=== PATIENT | male | born 1995 | race Caucasian/White ===

== ENCOUNTER → 2023-05-14 11:34 | Outpatient (CLI) | payer OTHER, SELFPAY ==
--- NOTE | 2023-05-14 11:37 | DI.MRI.S_ITS ---
PROCEDURE: MR ANKLE RT WO CON INDICATIONS: Sprain of unspecified ligament of right ankle TECHNIQUE: Noncontrast sagittal T1 spin echo and T2 fast spin echo with fat saturation, axial proton density fast spin echo and T2 fast spin echo with fat saturation, coronal T1 spin echo and T2 fast spin echo with fat saturation through the ankle/hindfoot. COMPARISON: None. FINDINGS: Image quality: Excellent. Bones and joints: No acute trabecular bone injury or fracture. No hindfoot coalitions. No osteochondral injuries of the talar dome. Medial structures: The deltoid ligament and the spring ligament complex are intact. The posterior tibialis, flexor digitorum longus, and flexor hallucis longus tendons are intact. The posterior tibial neurovascular bundle appears normal within the tarsal tunnel, without extrinsic mass effect. Lateral structures: Mild subcutaneous scarring is seen at the anterolateral aspect of the ankle. There is complete tearing of the anterior talofibular ligament and likely the calcaneofibular ligament. Remote prior low-grade sprain of the posterior talofibular ligament. The anterior and posterior tibiofibular ligaments are intact. The peroneus longus and brevis tendons demonstrate mild tendinosis. The sinus tarsi demonstrates normal fatty signal. Anterior structures: The tibialis anterior, extensor hallucis longus, and extensor digitorum longus tendons appear intact. The dorsal talonavicular ligament appears intact. Posterior and plantar structures: Mild Achilles tendinosis. The proximal plantar fascia is intact. No abductor digiti minimi muscle atrophy to suggest Lopez neuropathy. IMPRESSION: 1. 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 Remote prior grade 1 sprain of the the posterior talofibular ligament. Mild scarring at the anterolateral aspect of the ankle may indicate anterolateral impingement. 2. Mild peroneus brevis and longus tendinosis. 3. Mild Achilles tendinosis. Approved by: Dave Sears M.D. on 05/16/2023 at 13:58
== END ==
LOC: MRI 11:35
PROVIDERS: Referring Provider Orthopaedic Surgery; Visit Provider Orthopaedic Surgery
DX: S93.491A Sprain of other ligament of right ankle, initial encounter (principal); S93.411A Sprain of calcaneofibular ligament of right ankle, initial encounter; X58.XXXA Exposure to other specified factors, initial encounter
CPT/HCPCS: 73721

== ENCOUNTER 2024-09-05 12:01 | Emergency (ER) | payer OTHER, SELFPAY ==
[2024-09-05 12:26] VITALS: BP 136/77; PULSE 108; RESP 18; TEMP 36.9; O2SAT 100; BMI 27.5
--- NOTE | 2024-09-05 12:42 | ED.URI ---
HPI - URI/Sore Throat <Pam Wells PA-C - Last Filed: 09/05/24 15:31> General Chief Complaint: Upper Respiratory Symptoms Stated Complaint: has strep sent by PCP high white blood cells Time Seen by Provider: 09/05/24 12:41 Source: patient Mode of arrival: Ambulatory History of Present Illness HPI Narrative: Mr. Regalado is a very pleasant 29-year-old male, active [place], with no reported past medical history who presents to the emergency department after being sent pt PCP for sore throat x3 days with the elevated white blood cell count. Patient developed a sore throat, has had difficulty swallowing and pain with neck range of motion, he saw his primary care doctor in office and had blood work and a strep test performed, the results came back after hours, the strep test was positive and his white blood cell count was elevated so he was sent to the ER. He has not been taking any medications, no prescription for antibiotics yet. Reports pain with swallowing, worse on the right side than the left. No difficulty tolerating secretions or shortness of breath. He has been having fevers at home, took ibuprofen earlier this morning. No chest pain, rashes, shortness of breath, nausea, vomiting, diarrhea, constipation. Related Data Previous Rx's ?Medication ?Instructions ?Recorded amoxicillin 875 mg-potassium 1 tab PO Q12H 10 days #20 tabs 09/05/24 clavulanate 125 mg tablet Allergies Allergy/AdvReac Type Severity Reaction Status Date / Time No Known Drug Allergies Allergy Verified 09/05/24 12:26 Review of Systems <Pam Wells PA-C - Last Filed: 09/05/24 15:31> Review of Systems ROS Unobtainable: All systems reviewed & are unremarkable except as noted in HPI and below Patient History <Pam Wells PA-C - Last Filed: 09/05/24 15:31> Social History Smoking Status: Never smoker Smoking Status: Never smoker Exam <HIPOLITO Cortez Last Filed: 09/05/24 15:31> Narrative Exam Narrative: GENERAL: 29 year old patient appears stated age. Well-developed patient, in no acute distress. HEAD: Atraumatic. Normocephalic. EYES: PERRL. Extraocular motions intact. No scleral icterus. No injection or drainage. ENT: Normal TMs bilaterally. Nose without bleeding, purulent drainage. Posterior oropharynx brightly erythematous with bilateral tonsillar hypertrophy, right greater than the left, uvula is midline and airway is patent. Submandibular region and floor of mouth soft. Tolerating secretions without difficulty. NECK: Trachea midline. Cervical ROM intact. Patient does have pain with cervical range of motion. Palpable bilateral cervical lymphadenopathy present. CARDIOVASCULAR: Increased rate rate and rhythm. RESPIRATORY: ?Nonlabored respirations. ?Speaking in clear, full sentences. ?Clear to auscultation. Breath sounds equal bilaterally. No wheezes, rales, or rhonchi. ? EXTREMITIES: No edema or joint tenderness. BACK: Nontender without deformity or crepitance. No flank tenderness. NEURO: AOx3. ?Clear speech. ?Moves all 4 extremities appropriately. SKIN: No rash or erythema of visible areas Initial Vital Signs Initial Vital Signs: Vital Signs Temperature 98.5 F 09/05/24 12:26 Pulse Rate 108 H 09/05/24 12:26 Respiratory Rate 18 09/05/24 12:26 Blood Pressure 136/77 09/05/24 12:26 Pulse Oximetry 100 09/05/24 12:26 Oxygen Delivery Method Room Air 09/05/24 12:26 <Rosario Kate DO - Last Filed: 09/05/24 18:28> Initial Vital Signs Initial Vital Signs: Vital Signs Temperature 98.5 F 09/05/24 12:26 Pulse Rate 108 H 09/05/24 12:26 Respiratory Rate 18 09/05/24 12:26 Blood Pressure 136/77 09/05/24 12:26 Pulse Oximetry 100 09/05/24 12:26 Oxygen Delivery Method Room Air 09/05/24 12:26 Course <Pam Wells PA-C - Last Filed: 09/05/24 15:31> Orders Ordered: ED Orders 09/05/24 12:49 CT soft tissue neck w con Stat 09/05/24 13:18 CBC Auto Diff [Complete Blood Count AUTO DIFF] Stat CMP [Comprehensive Metabolic Panel] Stat Lactate (Lactic Acid) Stat 09/05/24 13:34 Blood Culture Stat Discontinued Medications Acetaminophen (Acetaminophen 325 Mg Tablet) 975 mg PO NOW ONE Stop: 09/05/24 15:05 Last Admin: 09/05/24 15:15 Dose: 975 mg Documented By: FABIAN Dexamethasone (Dexamethasone 10 Mg/Ml Vial) 10 mg IV NOW ONE Stop: 09/05/24 12:49 Last Admin: 09/05/24 13:50 Dose: 10 mg Documented By: INES Sodium Chloride (Normal Saline 0.9%) 1,000 mls @ 1,000 mls/hr IV BOLUS ONE Stop: 09/05/24 13:47 Last Infusion: 09/05/24 15:11 Dose: Infused Documented By: Admin: 09/05/24 13:49 Dose: 1,000 mls/hr Documented By: INES Ampicillin Sodium/Sulbactam (Sodium 3 gm/ Sodium Chloride) 100 mls @ 200 mls/hr IV NOW ONE Stop: 09/05/24 12:51 Last Infusion: 09/05/24 14:37 Dose: Infused Documented By: Admin: 09/05/24 14:01 Dose: 200 mls/hr Documented By: INES Sodium Chloride (Normal Saline 0.9%) 1,000 mls @ 1,000 mls/hr IV BOLUS ONE Stop: 09/05/24 13:52 Last Admin: 09/05/24 14:37 Dose: 1,000 mls/hr Documented By: INES Ketorolac Tromethamine (Ketorolac 30 Mg/Ml Vial) 15 mg IV NOW ONE Stop: 09/05/24 12:49 Last Admin: 09/05/24 13:50 Dose: 15 mg Documented By: INES Vital Signs Vital signs: Vital Signs - 8 hr 09/05/24 12:26 09/05/24 13:25 09/05/24 13:42 Temperature 98.5 F 100.8 F H 99.5 F Pulse Rate 108 H 98 H Respiratory Rate 18 18 Blood Pressure 136/77 135/95 H Pulse Oximetry 100 100 Oxygen Delivery Method Room Air Room Air 09/05/24 14:38 09/05/24 15:13 Temperature 99.7 F H 99.3 F Pulse Rate 99 H 98 H Respiratory Rate 18 18 Blood Pressure 134/86 121/75 Pulse Oximetry 99 100 Oxygen Delivery Method Room Air Room Air <Rosario Kate, DO - Last Filed: 09/05/24 18:28> Orders Ordered: ED Orders 09/05/24 12:49 CT soft tissue neck w con Stat 09/05/24 13:18 CBC Auto Diff [Complete Blood Count AUTO DIFF] Stat CMP [Comprehensive Metabolic Panel] Stat Lactate (Lactic Acid) Stat 09/05/24 13:34 Blood Culture Stat Discontinued Medications Acetaminophen (Acetaminophen 325 Mg Tablet) 975 mg PO NOW ONE Stop: 09/05/24 15:05 Last Admin: 09/05/24 15:15 Dose: 975 mg Documented By: FABIAN Dexamethasone (Dexamethasone 10 Mg/Ml Vial) 10 mg IV NOW ONE Stop: 09/05/24 12:49 Last Admin: 09/05/24 13:50 Dose: 10 mg Documented By: INES Sodium Chloride (Normal Saline 0.9%) 1,000 mls @ 1,000 mls/hr IV BOLUS ONE Stop: 09/05/24 13:47 Last Infusion: 09/05/24 15:11 Dose: Infused Documented By: Admin: 09/05/24 13:49 Dose: 1,000 mls/hr Documented By: INES Ampicillin Sodium/Sulbactam (Sodium 3 gm/ Sodium Chloride) 100 mls @ 200 mls/hr IV NOW ONE Stop: 09/05/24 12:51 Last Infusion: 09/05/24 14:37 Dose: Infused Documented By: Admin: 09/05/24 14:01 Dose: 200 mls/hr Documented By: INES Sodium Chloride (Normal Saline 0.9%) 1,000 mls @ 1,000 mls/hr IV BOLUS ONE Stop: 09/05/24 13:52 Last Admin: 09/05/24 14:37 Dose: 1,000 mls/hr Documented By: INES Ketorolac Tromethamine (Ketorolac 30 Mg/Ml Vial) 15 mg IV NOW ONE Stop: 09/05/24 12:49 Last Admin: 09/05/24 13:50 Dose: 15 mg Documented By: INES Vital Signs Vital signs: Vital Signs - 8 hr 09/05/24 12:26 09/05/24 13:25 09/05/24 13:42 Temperature 98.5 F 100.8 F H 99.5 F Pulse Rate 108 H 98 H Respiratory Rate 18 18 Blood Pressure 136/77 135/95 H Pulse Oximetry 100 100 Oxygen Delivery Method Room Air Room Air 09/05/24 14:38 09/05/24 15:13 Temperature 99.7 F H 99.3 F Pulse Rate 99 H 98 H Respiratory Rate 18 18 Blood Pressure 134/86 121/75 Pulse Oximetry 99 100 Oxygen Delivery Method Room Air Room Air MDM - URI/Sore Throat <Pam Wells PA-C - Last Filed: 09/05/24 15:31> Lab Data 09/05/24 13:18 09/05/24 13:18 Labs: Lab Results 09/05/24 Range/Units 13:18 WBC 13.4 H (4.5-11.0) X10^3/uL RBC 5.10 (4.5-5.9) X10^6/uL Hgb 15.5 (13.5-17.5) g/dL Hct 44.8 (41-53) % MCV 87.9 (80-100) fL MCH 30.5 (26-34) PG MCHC 34.7 (30-36) % RDW 13.3 (11.6-14.8) % Plt Count 137 L (150-400) X10^3/uL Neut % (Auto) 83.1 H (50-75) % Lymph % (Auto) 8.1 L (25-40) % [place] % (Auto) 8.3 (3-14) % Eos % (Auto) 0.3 L (2-4) % Baso % (Auto) 0.2 (0-2) % Neut # (Auto) 92196 H (5846-7933) /uL Lymph # (Auto) 1100 (5149-9690) /uL [place] # (Auto) 1100 H (0-900) /uL Eos # (Auto) 0 (0-450) /uL Baso # (Auto) 0 (0-100) /uL Sodium 137 (137-145) mmol/L Potassium 4.2 (3.4-5.1) mmol/L Chloride 100 (98-107) mmol/L Carbon Dioxide 28 (22-32) mmol/L BUN 17 (9-20) mg/dL Creatinine 1.12 (0.66-1.25) mg/dL Estimated GFR > 60 (>60) mL/min BUN/Creatinine Ratio 15.2 (6-22) Glucose 96 (70-99) mg/dL Lactate 0.7 (0.7-2.1) mmol/L Calcium 9.0 (8.4-10.2) mg/dL Total Bilirubin 1.9 H (0.2-1.3) mg/dL AST 26 (17-59) IU/L ALT 19 (<50) IU/L Alkaline Phosphatase 79 (38-126) U/L Total Protein 8.3 H (6.3-8.2) g/dL Albumin 4.5 (3.5-5.0) g/dL Globulin 3.8 (1.7-4.1) g/dL Albumin/Globulin Ratio 1.2 (1.0-2.8) Imaging Data CT Soft Tissue Neck: Radiologist's Impression: PROCEDURE: CT SOFT TISSUE NECK W CON INDICATIONS: strep +; R sided swelling > left TECHNIQUE: After the administration of intravenous contrast, 3.0 mm axial sections acquired from the sella to the aortic arch. Additional oblique axial 3.0 mm sections acquired through the pharynx. 3 mm thick coronal and sagittal reformats were generated. For radiation dose reduction, the following was used: automated exposure control. COMPARISON: None. FINDINGS: Image quality: Excellent. Lymph nodes: Enlarged cervical lymph nodes can be seen, with the largest on the left seen at level 2A measuring 2.5 by 1.5 cm. The largest on the right is also seen at level 2A measuring 1.9 by 1.6 cm. Vessels: Visualized vasculature appears patent. Neck spaces: Generalized soft tissue swelling can be seen of the mucosa of the oropharynx, with hypertrophy of the tonsils. The lymph tissue at the tongue base is also hypertrophied. No findings of abscess can be seen. Just anterior to the hyoid bone, there is a cystic focus seen without rim enhancement measuring 15 x 15 mm in greatest axial dimension, with a craniocaudal extent of 8 mm. Glands: The parotid and submandibular glands appear normal. Thyroid gland the demonstrates no significant abnormality. Miscellaneous: Visualized brain and orbits appear normal. Lung apices appear clear. Superficial soft tissues appear normal. Bones: No suspicious bony lesions. Visualized sinuses and mastoids appear unremarkable. IMPRESSION: Generalized soft tissue swelling seen of the mucosa of the oropharynx, yet without an abscess seen. The appearance is consistent with the given clinical history of strep infection. Enlarged cervical lymph nodes can be seen on both sides, which are regarded to be reactive. The incidental note is made of a 15 mm cystic focus just anterior to the hyoid bone, which represents a thyroglossal duct cyst until proven otherwise. No findings of infection of this cyst can be seen. Dictated by: Murali Atkins M.D. on 09/05/2024 at 13:11 Approved by: Murali Atkins M.D. on 09/05/2024 at 13:13 [facility] Narrative Medical decision making narrative: 29-year-old male, active [place], with no reported past medical history who presents to the emergency department after being sent pt PCP for sore throat x3 days with the elevated white blood cell count. Differential diagnosis includes but is not limited to strep pharyngitis, peritonsillar abscess, retropharyngeal abscess, cervical lymphadenopathy, etc. On exam patient is in no acute distress, nontoxic appearing, vital signs do reveal elevated temperature and heart rate. Posterior oropharynx brightly erythematous with bilateral tonsillar hypertrophy, right greater than left. He did test positive for strep pharyngitis outpatient. We will obtain labs including lactate, blood cultures, treat with Unasyn, IV fluids, Decadron, Toradol and obtain CT neck to rule out deep space abscess. Labs reveal elevated WBC count 13.4, normal hemoglobin 15.5 hematocrit 44.8. Platelets 137. BUN 17 creatinine 1.12. Negative lactate 0.7. CT reveals generalized soft tissue swelling seen of the mucosa of the oropharynx and without an abscess seen. Parents consistent with globin clinical history of strep infection. He does have enlarged cervical lymph nodes can be seen on both sides. Incidental note of a 15 mm cystic focus just anterior to the hyoid bone, which represents a thyroglossal duct cyst until proven otherwise. Printed and discussed all results with the patient. He is feeling much improved after ED treatment. No issues breathing or tolerating his secretions. We will prescribe Augmentin b.i.d. x 10 days, recommended increase hydration, ibuprofen and acetaminophen, follow up with PCP. Discussed strict ED return precautions. Patient verbalized understanding of all information and is agreeable with the plan. He is stable for discharge home. <Rosario Kate, - Last Filed: 09/05/24 18:28> Lab Data Labs: Lab Results 09/05/24 Range/Units 13:18 WBC 13.4 H (4.5-11.0) X10^3/uL RBC 5.10 (4.5-5.9) X10^6/uL Hgb 15.5 (13.5-17.5) g/dL Hct 44.8 (41-53) % MCV 87.9 (80-100) fL MCH 30.5 (26-34) PG MCHC 34.7 (30-36) % RDW 13.3 (11.6-14.8) % Plt Count 137 L (150-400) X10^3/uL Neut % (Auto) 83.1 H (50-75) % Lymph % (Auto) 8.1 L (25-40) % [place] % (Auto) 8.3 (3-14) % Eos % (Auto) 0.3 L (2-4) % Baso % (Auto) 0.2 (0-2) % Neut # (Auto) 61427 H (1898-1619) /uL Lymph # (Auto) 1100 (6148-8168) /uL [place] # (Auto) 1100 H (0-900) /uL Eos # (Auto) 0 (0-450) /uL Baso # (Auto) 0 (0-100) /uL Sodium 137 (137-145) mmol/L Potassium 4.2 (3.4-5.1) mmol/L Chloride 100 (98-107) mmol/L Carbon Dioxide 28 (22-32) mmol/L BUN 17 (9-20) mg/dL Creatinine 1.12 (0.66-1.25) mg/dL Estimated GFR > 60 (>60) mL/min BUN/Creatinine Ratio 15.2 (6-22) Glucose 96 (70-99) mg/dL Lactate 0.7 (0.7-2.1) mmol/L Calcium 9.0 (8.4-10.2) mg/dL Total Bilirubin 1.9 H (0.2-1.3) mg/dL AST 26 (17-59) IU/L ALT 19 (<50) IU/L Alkaline Phosphatase 79 (38-126) U/L Total Protein 8.3 H (6.3-8.2) g/dL Albumin 4.5 (3.5-5.0) g/dL Globulin 3.8 (1.7-4.1) g/dL Albumin/Globulin Ratio 1.2 (1.0-2.8) Discharge Plan Departure Patient Disposition: Home Clinical Impression: Acute streptococcal pharyngitis Instructions: DI for Strep Throat Activity Restrictions/Additional Instructions: Dear Mr. Regalado, Thank you for coming to the emergency department. Today you were evaluated for a throat infection, your CT scan revealed no signs of abscess at this time. You did have an incidental finding of a likely thyroglossal duct cyst which you can follow up with the primary care doctor about. Please complete the full 10 day course of antibiotics. I would also like you to take ibuprofen and Tylenol to help control pain and fevers. Increase your hydration, and also increase rest. Return to the emergency department if you develop any new or worsening symptoms, difficulty swallowing or any other concerns. Please take Ibuprofen (Motrin/Advil) or Acetaminophen (Tylenol) for pain. These are available over the counter. You may take Ibuprofen 600 mg every 8 hours with food for pain. You may also take Acetaminophen 650 mg every 4-6 hours for pain. Do not exceed 3000 mg of Tylenol a day as this can cause liver damage. Do not drink alcohol with either of these medications. Please follow up with your primary care doctor within the next 2-3 days for ER follow-up. (If you do not have a PCP you can call [phone]. ?to schedule an appointment with an [facility] Primary Care Provider) IF YOU DEVELOP ANY NEW OR WORSENING SYMPTOMS, RETURN TO THE ER! Please read the attached instructions, they highlight more specific treatments and interventions for you at home. Thank you for letting me participate in your care, Pam Wells PA-C Prescriptions: New amoxicillin-pot clavulanate 875-125 mg tablet 1 tab PO Q12H 10 Days Qty: 20 0RF Stand Alone Forms: Patient Portal/API, Work Release Note ED Sign-out <Rosario Kate DO - Last Filed: 09/05/24 18:28> Cosign ED Attending Kecia Attestation: I was immediately available in the department for consultation.
--- NOTE | 2024-09-05 12:49 | DI.CT.S_ITS ---
PROCEDURE: CT SOFT TISSUE NECK W CON INDICATIONS: strep +; R sided swelling > left TECHNIQUE: After the administration of intravenous contrast, 3.0 mm axial sections acquired from the sella to the aortic arch. Additional oblique axial 3.0 mm sections acquired through the pharynx. 3 mm thick coronal and sagittal reformats were generated. For radiation dose reduction, the following was used: automated exposure control. COMPARISON: None. FINDINGS: Image quality: Excellent. Lymph nodes: Enlarged cervical lymph nodes can be seen, with the largest on the left seen at level 2A measuring 2.5 by 1.5 cm. The largest on the right is also seen at level 2A measuring 1.9 by 1.6 cm. Vessels: Visualized vasculature appears patent. Neck spaces: Generalized soft tissue swelling can be seen of the mucosa of the oropharynx, with hypertrophy of the tonsils. The lymph tissue at the tongue base is also hypertrophied. No findings of abscess can be seen. Just anterior to the hyoid bone, there is a cystic focus seen without rim enhancement measuring 15 x 15 mm in greatest axial dimension, with a craniocaudal extent of 8 mm. Glands: The parotid and submandibular glands appear normal. Thyroid gland the demonstrates no significant abnormality. Miscellaneous: Visualized brain and orbits appear normal. Lung apices appear clear. Superficial soft tissues appear normal. Bones: No suspicious bony lesions. Visualized sinuses and mastoids appear unremarkable. IMPRESSION: Generalized soft tissue swelling seen of the mucosa of the oropharynx, yet without an abscess seen. The appearance is consistent with the given clinical history of strep infection. Enlarged cervical lymph nodes can be seen on both sides, which are regarded to be reactive. The incidental note is made of a 15 mm cystic focus just anterior to the hyoid bone, which represents a thyroglossal duct cyst until proven otherwise. No findings of infection of this cyst can be seen. Dictated by: Murali Atkins M.D. on 09/05/2024 at 13:11 Approved by: Murali Atkins M.D. on 09/05/2024 at 13:13
[2024-09-05 13:25] VITALS: BP 135/95; PULSE 98; RESP 18; TEMP 38.2; O2SAT 100
[2024-09-05 13:37] LABS: Add Manual Diff / Slide Review NO; Basophils Absolute Auto 0 /uL (0-100); Basophils Percent Auto 0.2 % (0-2); Eosinophils Absolute Auto 0 /uL (0-450); Eosinophils Percent Auto 0.3 % (2-4); Hematocrit 44.8 % (41-53); Hemoglobin 15.5 g/dL (13.5-17.5); Lymphocytes Absolute Auto 1100 /uL (1100-4500); Lymphocytes Percent Auto 8.1 % (25-40); Mean Corpuscular HGB Conc 34.7 % (30-36); Mean Corpuscular Hemoglobin 30.5 PG (26-34); Mean Corpuscular Volume 87.9 fL (80-100); Monocytes Absolute Auto 1100 /uL (0-900); Monocytes Percent Auto 8.3 % (3-14); Neutrophils Absolute Auto 11100 /uL (1500-7000); Neutrophils Percent Auto 83.1 % (50-75); Platelet Count 137 X10^3/uL (150-400); Red Cell Distribution Width 13.3 % (11.6-14.8); White Blood Cell Count 13.4 X10^3/uL (4.5-11.0)
[2024-09-05 13:42] VITALS: TEMP 37.5
[2024-09-05] MEDS: SODIUM CHLORIDE 0.9% 1,000 ML 1000 ML IV ×2 (13:49→14:37)
[2024-09-05 13:50] LABS: Alanine Aminotransferase 19 IU/L (<50); Albumin 4.5 g/dL (3.5-5.0); Albumin Globulin Ratio 1.2 (1.0-2.8); Alkaline Phosphatase 79 U/L (38-126); Aspartate Aminotransferase 26 IU/L (17-59); BUN Creatinine Ratio 15.2 (6-22); Bilirubin Total 1.9 mg/dL (0.2-1.3); Blood Urea Nitrogen 17 mg/dL (9-20); Carbon Dioxide 28 mmol/L (22-32); Chloride 100 mmol/L (98-107); Estimated Glomerular Filt Rate > 60 mL/min (>60); Globulin 3.8 g/dL (1.7-4.1); Glucose 96 mg/dL (70-99); HEMOLYSIS < 15 (0-50); Lactate (Lactic Acid) 0.7 mmol/L (0.7-2.1); Potassium 4.2 mmol/L (3.4-5.1); Sodium 137 mmol/L (137-145); Total Protein 8.3 g/dL (6.3-8.2)
[2024-09-05] MEDS: DEXAMETHASONE 10 MG/ML VIAL IV (13:50)
[2024-09-05] MEDS: KETOROLAC 30 MG/ML VIAL 15 MG IV (13:50)
[2024-09-05] MEDS: AMPICILLIN/SULBACTAM 3 GM 3 GM in SODIUM CHLORIDE 0.9% 100 ML IV (14:01)
[2024-09-05 14:38] VITALS: BP 134/86; PULSE 99; RESP 18; TEMP 37.6; O2SAT 99
[2024-09-05 15:13] VITALS: BP 121/75; PULSE 98; RESP 18; TEMP 37.4; O2SAT 100
[2024-09-05] MEDS: ACETAMINOPHEN 325 MG TABLET 975 MG PO (15:15)
== END 2024-09-05 15:25 | disposition home or self-care (01) ==
PROVIDERS: Emergency Provider Physician Assistant
DX: J02.0 Streptococcal pharyngitis (principal)
CPT/HCPCS: 36415; 70491; 80053; 83605; 85025; 87040; 96365; 96375; 99284; J0295; J1100; J1885; Q9967

== ENCOUNTER 2024-12-19 09:01 | Emergency (ER) | payer OTHER, SELFPAY ==
[2024-12-19 09:05] VITALS: BP 126/78; PULSE 81; RESP 16; TEMP 37; O2SAT 98; BMI 26.2
--- NOTE | 2024-12-19 09:49 | DI.CT.S_ITS ---
PROCEDURE: CT ABDOMEN PELVIS W CON INDICATIONS: Right lower quadrant pain TECHNIQUE: After the administration of intravenous contrast, axial sections acquired from the lung bases to the pubic symphysis. Coronal and sagittal reformats were performed. For radiation dose reduction, the following was used: automated exposure control, adjustment of mA and/or kV according to patient size. COMPARISON: None. FINDINGS: Image quality: Diagnostic. Lower Chest: No significant findings. ABDOMEN: Liver: No solid mass. Gallbladder: No radiopaque gallstones or wall thickening. Biliary ducts: No biliary dilation. Pancreas: No ductal dilation. Spleen: Size is within normal limits. Adrenal Glands: No adrenal nodules. Kidneys and Ureters: No hydronephrosis. No solid mass. No complex renal cystic lesion which requires follow up. Stomach and Bowel: Normal colonic caliber, without significant wall thickening. Mobile cecum with right colon in the left abdomen and cecum position in the left paramedian pelvis with normal appendix identified in the mid pelvis. Moderate amount of stool scattered throughout the colon. Peritoneum: No abnormal intraperitoneal fluid. No free air. Ventral Wall: No significant ventral hernia. Abdominal Nodes: No retroperitoneal or mesenteric adenopathy by size criteria. Vessels: Aorta and inferior vena cava are normal in size. PELVIS: Pelvic Organs: Unremarkable. Bladder: No bladder wall thickening, accounting for underdistention. Pelvic Nodes: No enlarged lymph nodes. Miscellaneous: No inguinal hernias are seen. Bones: No aggressive osseous abnormality. IMPRESSION: No acute disease process. Moderate colonic fecal loading. Normal appendix. No renal stone or hydronephrosis. Dictated by: Anjana Encinas MD, PhD on 12/19/2024 at 10:05 Approved by: Anjana Encinas MD, PhD on 12/19/2024 at 10:08
--- NOTE | 2024-12-19 09:54 | ED.ABDPAIN ---
HPI - Abdominal Pain General Chief Complaint: Abdominal Pain Stated Complaint: Intense Stomach pain at night time, bloody stool Time Seen by Provider: 12/19/24 09:30 History of Present Illness HPI narrative: Patient complains of right lower quadrant pain for the past few days. No nausea or vomiting. Patient did have bright red blood covered stools a few times though. Denies any abdominal surgical history. No history of ulcerative colitis or Crohn's disease. No urinary complaints. Patient does not want anything for discomfort at this time. Related Data Allergies Allergy/AdvReac Type Severity Reaction Status Date / Time No Known Drug Allergies Allergy Verified 09/05/24 12:26 Review of Systems Review of Systems Narrative: GENERAL: Negative chills, fatigue, malaise, fever, sweats. HEENT: Negative sinus pain, ear pain, sore throat RESPIRATORY: Negative dyspnea, cough CARDIOVASCULAR: Negative chest pain, palpitations GASTROINTESTINAL: Negative vomiting, nausea, positive blood in the stool, positive abdominal pain : Negative dysuria, frequency, hematuria MUSCULOSKELETAL: Negative muscle or bony pain SKIN: Negative rash, skin lesions NEUROLOGIC: Negative weakness, numbness ROS Unobtainable: All systems reviewed & are unremarkable except as noted in HPI and below Exam Narrative Exam Narrative: GENERAL: in no distress, not toxic not dyspneic HEAD: Normocephalic. EYES: Pupils equal round ENT: Mucous membranes moist. NECK: Trachea midline. CARDIOVASCULAR: Regular rate and rhythm RESPIRATORY: Clear to auscultation. Breath sounds equal bilaterally. No wheezes, rales, or rhonchi. GASTROINTESTINAL: Abdomen soft, non-tender, reproducible diffuse right lower quadrant tenderness. No McBurney point tenderness. No peritoneal signs bowel sounds are present. No guarding rebound. No CVA tenderness EXTREMITIES: No gross deformities. BACK: No flank tenderness. NEURO: AOx4. Clear speech SKIN: Warm and dry PSYCH: Not anxious, is cooperative Initial Vital Signs Initial Vital Signs: Vital Signs Temperature 98.6 F 12/19/24 09:05 Pulse Rate 81 12/19/24 09:05 Respiratory Rate 16 12/19/24 09:05 Blood Pressure 126/78 12/19/24 09:05 Pulse Oximetry 98 12/19/24 09:05 Oxygen Delivery Method Room Air 12/19/24 09:05 Course Orders Ordered: ED Orders 12/19/24 09:49 CT abdomen pelvis w con Stat 12/19/24 09:50 Complete Blood Count AUTO DIFF Stat Comprehensive Metabolic Panel Stat Lipase Stat Type and Screen Stat Discontinued Medications Sodium Chloride (Normal Saline 0.9%) 1,000 mls @ 1,000 mls/hr IV BOLUS ONE Stop: 12/19/24 10:34 Last Infusion: 12/19/24 11:20 Dose: Infused Documented By: Admin: 12/19/24 10:19 Dose: 1,000 mls/hr Documented By: INES Vital Signs Vital signs: Vital Signs - 8 hr 12/19/24 09:05 12/19/24 10:23 12/19/24 10:24 Temperature 98.6 F Pulse Rate 81 82 79 Respiratory Rate 16 Blood Pressure 126/78 Pulse Oximetry 98 95 100 Oxygen Delivery Method Room Air 12/19/24 10:24 12/19/24 10:30 12/19/24 10:30 Temperature Pulse Rate 75 Respiratory Rate Blood Pressure 121/76 115/74 Pulse Oximetry 100 Oxygen Delivery Method 12/19/24 11:00 12/19/24 11:00 Temperature Pulse Rate 77 Respiratory Rate Blood Pressure 111/72 Pulse Oximetry 100 Oxygen Delivery Method MDM - Abdominal Pain Lab Data 12/19/24 09:50 12/19/24 09:50 Labs: Lab Results 12/19/24 Range/Units 09:50 WBC 8.2 (4.5-11.0) X10^3/uL RBC 5.16 (4.5-5.9) X10^6/uL Hgb 15.2 (13.5-17.5) g/dL Hct 44.5 (41-53) % MCV 86.2 (80-100) fL MCH 29.5 (26-34) PG MCHC 34.3 (30-36) % RDW 13.3 (11.6-14.8) % Plt Count 174 (150-400) X10^3/uL Neut % (Auto) 71.9 (50-75) % Lymph % (Auto) 21.7 L (25-40) % Todd % (Auto) 5.5 (3-14) % Eos % (Auto) 0.5 L (2-4) % Baso % (Auto) 0.4 (0-2) % Neut # (Auto) 5900 (9745-9344) /uL Lymph # (Auto) 1800 (3232-7385) /uL Todd # (Auto) 400 (0-900) /uL Eos # (Auto) 0 (0-450) /uL Baso # (Auto) 0 (0-100) /uL Sodium 140 (137-145) mmol/L Potassium 3.7 (3.4-5.1) mmol/L Chloride 103 (98-107) mmol/L Carbon Dioxide 25 (22-32) mmol/L BUN 16 (9-20) mg/dL Creatinine 1.03 (0.66-1.25) mg/dL Estimated GFR > 60 (>60) mL/min BUN/Creatinine Ratio 15.5 (6-22) Glucose 121 H (70-99) mg/dL Calcium 9.2 (8.4-10.2) mg/dL Total Bilirubin 1.1 (0.2-1.3) mg/dL AST 27 (17-59) IU/L ALT 18 (<50) IU/L Alkaline Phosphatase 70 (38-126) U/L Total Protein 8.6 H (6.3-8.2) g/dL Albumin 4.8 (3.5-5.0) g/dL Globulin 3.8 (1.7-4.1) g/dL Albumin/Globulin Ratio 1.3 (1.0-2.8) Lipase 48 (23-300) U/L Blood Type O Positive Antibody Screen Negative Imaging Data CT scan - abdomen/pelvis: Radiologist's Impression: [place] [address] CT Scan Report Signed Patient: Deven Regalado MR#: [id number] : 1995 Acct:[id number] Age/Sex: 29 / M Date of Service: 12/19/24 Loc: ED Accession Number: [id number] Procedure: CT abdomen pelvis w con Ordering Provider: Shola Gao MD PROCEDURE: CT ABDOMEN PELVIS W CON INDICATIONS: Right lower quadrant pain TECHNIQUE: After the administration of intravenous contrast, axial sections acquired from the lung bases to the pubic symphysis. Coronal and sagittal reformats were performed. For radiation dose reduction, the following was used: automated exposure control, adjustment of mA and/or kV according to patient size. COMPARISON: None. FINDINGS: Image quality: Diagnostic. Lower Chest: No significant findings. ABDOMEN: Liver: No solid mass. Gallbladder: No radiopaque gallstones or wall thickening. Biliary ducts: No biliary dilation. Pancreas: No ductal dilation. Spleen: Size is within normal limits. Adrenal Glands: No adrenal nodules. Kidneys and Ureters: No hydronephrosis. No solid mass. No complex renal cystic lesion which requires follow up. Stomach and Bowel: Normal colonic caliber, without significant wall thickening. Mobile cecum with right colon in the left abdomen and cecum position in the left paramedian pelvis with normal appendix identified in the mid pelvis. Moderate amount of stool scattered throughout the colon. Peritoneum: No abnormal intraperitoneal fluid. No free air. Ventral Wall: No significant ventral hernia. Abdominal Nodes: No retroperitoneal or mesenteric adenopathy by size criteria. Vessels: Aorta and inferior vena cava are normal in size. PELVIS: Pelvic Organs: Unremarkable. Bladder: No bladder wall thickening, accounting for underdistention. Pelvic Nodes: No enlarged lymph nodes. Miscellaneous: No inguinal hernias are seen. Bones: No aggressive osseous abnormality. IMPRESSION: No acute disease process. Moderate colonic fecal loading. Normal appendix. No renal stone or hydronephrosis. Dictated by: Anjana Encinas MD, PhD on 12/19/2024 at 10:05 Approved by: Anjana Encinas MD, PhD on 12/19/2024 at 10:08 [facility] Narrative Medical decision making narrative: Patient complains of right lower quadrant pain for the past few days. No nausea or vomiting. Patient did have bright red blood covered stools a few times though. Denies any abdominal surgical history. No history of ulcerative colitis or Crohn's disease. No urinary complaints. Patient does not want anything for discomfort at this time. [facility] After history and exam, CBC CMP CT abdomen pelvis normal saline Differential considered: Includes but not limited to appendix radiculitis colitis Medical records reviewed: No recent visit for this complaint Lab Test results independently reviewed as above. Pertinent findings: WBC 8.2 hemoglobin 15 hematocrit 45 platelets 174 Imaging studies independently reviewed: CT abdomen pelvis moderate stool burden. Normal appendix Re-evaluations: 11:07 a.m.. Updated patient results. Normal appendix. He does admit he was straining very hard during his bowel movements, reviewed them likely constipation causing stretching of the tissue causing small lead around the rectal area. He agrees to take over the stool softeners and he will follow up with his clinic. Discussion: Appropriate for discharge home. Exam is reassuring. Return precautions reviewed patient. IV contrast used for CT imaging. Diagnosis: Constipation Discharge Plan Departure Patient Disposition: Home Clinical Impression: Constipation Qualifiers: Constipation type: unspecified constipation type Qualified Code(s): K59.00 - Constipation, unspecified Instructions: DI for Constipation Activity Restrictions/Additional Instructions: Your exam and laboratory studies and CAT scan imaging is reassuring. You do new to increase daily fiber, use stool softeners keep well hydrated. The pain and bleeding likely due to constipation and hard stools. Please see your primary care provider in a week for re-evaluation. Return if worse if any questions or concerns. Work note has been provided for you Referrals: ProviderJordana [Primary Care Provider, Family Practice] Stand Alone Forms: Patient Portal/API, Work Release Note
[2024-12-19] MEDS: SODIUM CHLORIDE 0.9% 1,000 ML 1000 ML IV (10:19)
[2024-12-19 10:23] VITALS: PULSE 82; O2SAT 95
[2024-12-19 10:24] VITALS: BP 121/76; PULSE 79; O2SAT 100
[2024-12-19 10:25] LABS: Add Manual Diff / Slide Review NO; Hematocrit 44.5 % (41-53); Hemoglobin 15.2 g/dL (13.5-17.5); Lymphocytes Absolute Auto 1800 /uL (1100-4500); Mean Corpuscular HGB Conc 34.3 % (30-36); Mean Corpuscular Hemoglobin 29.5 PG (26-34); Mean Corpuscular Volume 86.2 fL (80-100); Platelet Count 174 X10^3/uL (150-400)
[2024-12-19 10:30] VITALS: BP 115/74; PULSE 75; O2SAT 100
[2024-12-19 10:34] LABS: Alanine Aminotransferase 18 IU/L (<50); Albumin 4.8 g/dL (3.5-5.0); Albumin Globulin Ratio 1.3 (1.0-2.8); Alkaline Phosphatase 70 U/L (38-126); Blood Urea Nitrogen 16 mg/dL (9-20); Calcium 9.2 mg/dL (8.4-10.2); Carbon Dioxide 25 mmol/L (22-32); Chloride 103 mmol/L (98-107); Estimated Glomerular Filt Rate > 60 mL/min (>60); Globulin 3.8 g/dL (1.7-4.1); Glucose 121 mg/dL (70-99); HEMOLYSIS < 15 (0-50); Lipase 48 U/L (23-300); Potassium 3.7 mmol/L (3.4-5.1); Sodium 140 mmol/L (137-145); Total Protein 8.6 g/dL (6.3-8.2)
[2024-12-19 11:00] VITALS: BP 111/72; PULSE 77; O2SAT 100
== END 2024-12-19 11:22 | disposition home or self-care (01) ==
PROVIDERS: Emergency Provider Emergency Medicine
DX: K59.00 Constipation, unspecified (principal)
CPT/HCPCS: 36415; 74177; 80053; 83690; 85025; 86850; 86900; 86901; 96360; 99284; Q9967